=== PATIENT | male | born 1995 | race African-American/Black ===

== ENCOUNTER 2017-05-04 10:37 | Emergency (ER) | payer SELFPAY ==
[~2017-05-04] VITALS: Ht 175.3 cm; Wt 77.1 kg
[2017-05-04 09:57] VITALS: BP 132/84
--- NOTE | 2017-05-04 09:59 | Emergency Room Report ---
History of Present Illness General Chief Complaint: Alcohol Intoxication Source: EMS Present Illness HPI Patient's 21-year-old male brought in by EMS after increased alcohol use. Patient stated that he wanted to come to the hospital for further treatment. The patient denies any current complaints. He denies any locations of pain at this time. History is markedly limited by patient's poor cooperation Allergies: Coded Allergies: No Known Allergies (Unverified , 05/04/17) Patient History Past Medical History: see triage record Reviewed Nursing Documentation: PMH: Agreed; PSxH: Agreed Nursing Documentation-PMH Past Medical History: No History, Except For Hx Cardiac Problems: No - HIV+, SUBSTANCE ABUSE Review of Systems All Other Systems: limited - by poor cooperation Physical Exam Vital Signs Date Time Temp Pulse Resp B/P (MAP) Pulse Ox O2 Delivery O2 Flow Rate FiO2 05/04/17 09:36 96.3 82 18 132/84 100 Room Air 96.3 Sp02 EP Interpretation: reviewed, normal General Appearance: normal inspection, well appearing, no apparent distress, alert, GCS 15 Head: atraumatic ENT: normal ENT inspection, hearing grossly normal, normal voice Neck: normal inspection, full range of motion, supple, no bony tend Respiratory: normal inspection, lungs clear, normal breath sounds, no respiratory distress, no retraction, no wheezing Cardiovascular #1: regular rate, rhythm, no edema Gastrointestinal: normal inspection, normal bowel sounds, non tender, soft, no guarding, no hernia Genitourinary: no CVA tenderness Musculoskeletal: normal inspection, back normal, normal range of motion Neurologic: normal inspection, alert, oriented x3, responsive, risk control analyst III-XII nml as tested, speech normal Psychiatric: normal inspection, judgement/insight normal, mood/affect normal Skin: normal inspection, normal color, no rash Medical Decision Making Diagnostic Impression: Primary Impression: Acute alcoholic intoxication ER Course patient presented for altered mental status. Differential diagnosis included but was not limited to alcohol intoxication, drug abuse, subarachnoid hemorrhage , hypoglycemia,neurodegenerative disorder, urinary tract infection, hypoxemia. Patient has a benign exam and does not appear to require any further imaging or laboratory testing at this time.The patient gradual improvement in mental status. The patient is advised to follow up with primary care doctor in 1-2 days. Patient is advised to return if any worsening condition or if any changes in status that are concerning. This report is dictated with [employer] home health care worker software which may occasionally lead to discrepancies related to use of this software. Last Vital Signs Date Time Temp Pulse Resp B/P (MAP) Pulse Ox O2 Delivery O2 Flow Rate FiO2 05/04/17 09:36 96.3 82 18 132/84 100 Room Air 96.3 Status: improved Disposition: HOME, SELF-CARE Condition: Stable Mike Smith May 04, 2017 09:59
[~2017-05-04 10:37] MED LIST: NKM
[2017-05-04 14:39] VITALS: BP 128/80
== END 2017-05-04 14:41 | disposition home or self-care (01) ==
LOC: EDBD 10:37 → EMR 11:35
DX: F10.129 Alcohol abuse with intoxication, unspecified (principal)
CPT/HCPCS: 99283